=== PATIENT | female | born 1945 | race Caucasian/White ===

== ENCOUNTER → 2024-10-06 08:29 | Outpatient (REF) | payer MEDICARE, OTHER, SELFPAY ==
[2024-10-06 13:13] LABS: % Basophils 0.5 % (0-2); % Eosinophils 3.5 % (0-6); % Immature Granulocytes 0.2 % (0-0.5); % Lymphocytes 30.1 % (20.5-51.1); % Monocytes 9.7 % (1.7-9.3); Absolute Eosinophils 0.2 10^3/uL (0-0.7); Absolute Monocytes 0.6 10^3/uL (0.1-0.6); Absolute Neutrophils 3.7 10^3/uL (1.4-6.5); Mean Corp Hgb Conc. 34.4 g/dL (33.0-37.0); Mean Corpuscular Volume 90.1 fL (81.0-99.0); Mean Platelet Volume 10.4 fL (7.4-10.4); Nucleated Red Blood Cells % 0 %; Platelet Count 259 10^3/uL (130-400); Red Blood Cell Count 3.55 10^6/uL (4.20-5.40); Red Cell Dist. Width 13.2 % (11.5-14.5); White Blood Cell Count 6.6 10^3/uL (4.8-10.8)
[2024-10-06 13:30] LABS: ALT (SGPT) 15 U/L (0-35); AST (SGOT) 20 U/L (14-36); Albumin 3.7 g/dl (3.5-5.0); Alkaline Phosphatase 97 U/L (38-126); Blood Urea Nitrogen 27 mg/dl (7-17); Calcium 9.8 mg/dl (8.4-10.2); Carbon Dioxide 27 mmol/L (22-30); Chloride 105 mmol/L (98-107); Glucose 94 mg/dl (70-99); HDL Cholesterol 69 mg/dl; LDL Cholesterol, Calculated 117 mg/dl; Potassium 4.1 mmol/L (3.5-5.1); Sodium 140 mmol/L (135-145); Total Bilirubin 0.5 mg/dl (0.2-1.3); Total Cholesterol 217 mg/dl (50-199); Total Protein 6.9 g/dl (6.3-8.2); Triglyceride 158 mg/dl (10-149); Uric Acid 8.3 mg/dl (2.5-6.2); Very Low Density Lipoprotein 31 mg/dl (0-30); eGFR 51.43
[2024-10-06 13:40] LABS: Total Thyroxine 8.61 ug/dl (5.5-11.0); Vitamin D, 25-OH*** 58.6 ng/mL (30-80)
[2024-10-06 13:49] LABS: Urine Albumin 1+ (Neg - Trace); Urine Bilirubin Negative (Negative); Urine Character Clear (Clear); Urine Color Yellow; Urine Glucose Negative (Negative); Urine Ketone Negative (Negative); Urine Leukocyte 3+ (Negative); Urine Nitrite Negative (Negative); Urine Occult Blood 1+ (Negative); Urine Specific Gravity 1.015 (<1.030); Urine Urobilinogen Negative (Neg - 1+)
[2024-10-06 13:54] LABS: TSH 1.74 uIU/ml (0.47-4.68)
[2024-10-06 14:11] LABS: Urine Squamous Cell >30 /LPF (Few)
[2024-10-06 14:12] LABS: Urine Bacteria Moderate (Negative)
[2024-10-06 14:14] LABS: Urine White Cell 40-50 /HPF (0-5)
[2024-10-06 14:42] LABS: Glycohemoglobin (HgbA1c) 5.7 % (4.0-5.6)
[2024-10-06 15:02] LABS: Vitamin B12 529 pg/ml (239-931)
[2024-10-09 05:12] LABS: Total T3 (Sendout) 110 ng/dL (80-200)
== END ==
LOC: HWLAB 08:29
PROVIDERS: ATTENDING PHYSICIAN Internal Medicine Cardiovascular Disease
DX: D64.9 Anemia, unspecified (principal); R78.89 Finding of other specified substances, not normally found in blood; E78.9 Disorder of lipoprotein metabolism, unspecified; E06.0 Acute thyroiditis; E11.9 Type 2 diabetes mellitus without complications; E55.9 Vitamin D deficiency, unspecified; D51.9 Vitamin B12 deficiency anemia, unspecified; M10.9 Gout, unspecified; N39.0 Urinary tract infection, site not specified
CPT/HCPCS: 36415; 80053; 80061; 81003; 81015; 82306; 82607; 83036; 84436; 84443; 84480; 84550; 85025

== ENCOUNTER → 2024-10-15 10:58 | Outpatient (REF) | payer MEDICARE, OTHER, SELFPAY | LOC: HWRAD 10:58 | PROVIDERS: ATTENDING PHYSICIAN Internal Medicine Cardiovascular Disease | DX: R91.8 Other nonspecific abnormal finding of lung field (principal); N20.0 Calculus of kidney | CPT/HCPCS: 71250; 74176 ==

== ENCOUNTER → 2025-04-12 07:32 | Outpatient (REF) | payer MEDICARE, OTHER, SELFPAY ==
[2025-04-12 10:03] LABS: Hematocrit 32.3 % (37.0-47.0); Hemoglobin 10.9 g/dL (12.0-16.0); Mean Corp Hgb Conc. 33.7 g/dL (33.0-37.0); Mean Corpuscular Volume 90.2 fL (81.0-99.0); Nucleated Red Blood Cells % 0 %; Platelet Count 229 10^3/uL (130-400); Red Cell Dist. Width 13.1 % (11.5-14.5)
[2025-04-12 10:13] LABS: ALT (SGPT) 16 U/L (0-35); AST (SGOT) 18 U/L (14-36); Albumin 3.9 g/dl (3.5-5.0); Alkaline Phosphatase 96 U/L (38-126); Blood Urea Nitrogen 44 mg/dl (7-17); Calcium 9.6 mg/dl (8.4-10.2); Carbon Dioxide 24 mmol/L (22-30); Chloride 107 mmol/L (98-107); Glucose 100 mg/dl (70-99); HDL Cholesterol 69 mg/dl; LDL Cholesterol, Calculated 145 mg/dl; Potassium 4.6 mmol/L (3.5-5.1); Sodium 138 mmol/L (135-145); Total Protein 7.0 g/dl (6.3-8.2); Uric Acid 9.7 mg/dl (2.5-6.2); Very Low Density Lipoprotein 36 mg/dl (0-30); eGFR 42.09
[2025-04-12 10:29] LABS: CRP, Ultra Sensitive 8.16 mg/L (0.30-5.00)
[2025-04-12 10:30] LABS: Vitamin D, 25-OH*** 40.4 ng/mL (30-80)
[2025-04-12 10:41] LABS: Urine Character Slightly Cloudy (Clear)
[2025-04-12 10:43] LABS: TSH 1.43 uIU/ml (0.47-4.68)
[2025-04-12 11:19] LABS: Folate > 20.0 ng/ml (2.76-20); Vitamin B12 > 1000 pg/ml (239-931)
[2025-04-12 11:25] LABS: Glycohemoglobin (HgbA1c) 5.7 % (4.0-5.6)
[2025-04-12 11:48] LABS: Urine Squamous Cell >30 /LPF (Few); Urine Urothelial Cell >30 /LPF (FEW)
[2025-04-12 11:52] LABS: Urine White Cell 50-60 /HPF (0-5)
[2025-04-14 07:21] LABS: Total T3 (Sendout) 113 ng/dL (80-200)
== END ==
LOC: HWWDC 07:32
PROVIDERS: ATTENDING PHYSICIAN Internal Medicine Cardiovascular Disease; FAMILY PHYSICIAN Internal Medicine
DX: Z12.31 Encounter for screening mammogram for malignant neoplasm of breast (principal); R78.89 Finding of other specified substances, not normally found in blood; D64.9 Anemia, unspecified; E78.9 Disorder of lipoprotein metabolism, unspecified; E06.0 Acute thyroiditis; E11.9 Type 2 diabetes mellitus without complications; E51.9 Thiamine deficiency, unspecified; D52.9 Folate deficiency anemia, unspecified; M10.9 Gout, unspecified; N39.0 Urinary tract infection, site not specified; E29.1 Testicular hypofunction; R89.1 Abnormal level of hormones in specimens from other organs, systems and tissues; E28.0 Estrogen excess; E72.11 Homocystinuria; R79.82 Elevated C-reactive protein (CRP); E55.9 Vitamin D deficiency, unspecified
CPT/HCPCS: 36415; 77063; 77067; 80053; 80061; 81003; 81015; 82306; 82607; 82627; 82670; 82746; 83036; 83090; 83704; 84270; 84402; 84403; 84436; 84443; 84480; 84550; 85025; 86141

== ENCOUNTER → 2025-04-21 11:26 | Outpatient (REF) | payer MEDICARE, OTHER, SELFPAY | LOC: HWRCS 11:26 | PROVIDERS: ATTENDING PHYSICIAN Internal Medicine Cardiovascular Disease; FAMILY PHYSICIAN Internal Medicine | DX: I27.20 Pulmonary hypertension, unspecified (principal) | CPT/HCPCS: 93306 ==